=== PATIENT | male | born 1960 | race Caucasian/White ===

== ENCOUNTER 2024-06-28 13:04 | Outpatient (CLI) | payer OTHER ==
[2024-06-28] MEDS ORDERED: Sterile Water 10 ML ONE (14:30)
[2024-06-28] MEDS ORDERED: Sincalide 5 MCG VIAL ONE (14:30)
[2024-06-28] MEDS ORDERED: Bacteriostatic Normal Saline 30 ML VIAL ONE (14:30)
== END 2024-06-28 13:05 | disposition home or self-care (01) ==
LOC: NM 13:04
PROVIDERS: ATTEND Internal Medicine
DX: R10.13 Epigastric pain (principal)
CPT/HCPCS: 78227; A9537; J2805